=== PATIENT | male | born 1990 | race Caucasian/White ===

== ENCOUNTER 2017-10-15 16:09 | Emergency (ER) | payer OTHER ==
[~2017-10-15] VITALS: Ht 177.8 cm; Wt 86.2 kg
[2017-10-15 16:09] VITALS: BP 118/72
[~2017-10-15 16:09] MED LIST: NORCO 5-325 TA1 EACH PO
[2017-10-15] MEDS ORDERED: CORTISPORIN OTI10 M2 OTIC (16:39)
[2017-10-15] MEDS ORDERED: IBUPROFEN 600600 M1 PO (16:40)
== END 2017-10-15 16:54 | disposition home or self-care (01) ==
LOC: ER 16:09
DX: H60.91 Unspecified otitis externa, right ear (principal); R59.1 Generalized enlarged lymph nodes; F17.210 Nicotine dependence, cigarettes, uncomplicated